=== PATIENT | male | born 1965 | race Caucasian/White ===

== ENCOUNTER 2024-04-05 04:43 | Outpatient (CLI) | payer OTHER, SELFPAY ==
[2024-04-05 09:56] LABS: Abs Immature Grans 0.01 10^3/uL (0.0-0.06); Absolute Basophil Count 0.03 10^3/uL (0.0-0.2); Absolute Eosinophil Count 0.08 10^3/uL (0.0-0.7); Absolute Lymphocyte Count 1.34 10^3/uL (1.2-3.4); Absolute Monocyte Count 0.49 10^3/uL (0.1-0.8); Absolute Neutrophil Count 2.19 10^3/uL (1.2-6.7); Basophils % 0.7 %; Eosinophils % 1.9 %; HCT 40.5 % (40.0-50.0); HGB 13.8 g/dL (13.5-17.5); Immature Grans % 0.2 %; Lymphocytes % 32.4 %; MCH 28.9 pg (27.0-33.0); MCHC 34.1 % (32.0-36.0); MCV 85 fL (80-95); MPV 9.2 fL (8.0-11.0); Monocytes % 11.8 %; Platelet Count 179 10^3/uL (130-400); RBC 4.77 10^6/uL (4.36-5.78); RDW 12.3 % (11.8-14.1); RDW-SD 38.4 fL; WBC 4.14 10^3/uL (4.4-10.8)
[2024-04-05 10:11] LABS: ALT 15 U/L (16-63); AST 21 U/L (15-37); Albumin 3.9 g/dL (3.4-5.0); Alkaline Phosphatase 85 U/L (46-116); Anion Gap 9.9 mmol/L (3-11); BUN 11 mg/dL (7-18); Bilirubin, Total 0.54 mg/dL (0.2-1.0); CO2 25.1 mmol/L (21.0-32.0); CREATININE 1.1 mg/dL (0.70-1.30); Calcium 8.8 mg/dL (8.5-10.1); Chloride 104 mmol/L (98-107); Estimated GFR 77.33 (mL/min/1.73m2); Glucose 147 mg/dL (74-106); Magnesium 1.9 mg/dL (1.8-2.4); Sodium 139 mmol/L (136-145); Total Protein 7.4 g/dL (6.4-8.2)
== END 2024-04-05 04:44 | disposition home or self-care (01) ==
LOC: LBO 04:43
PROVIDERS: Visit Provider Internal Medicine Medical Oncology
DX: C15.5 Malignant neoplasm of lower third of esophagus (principal)
CPT/HCPCS: 36415; 80053; 83735; 85025

== ENCOUNTER 2024-04-12 02:19 | Outpatient (CLI) | payer OTHER, SELFPAY ==
[2024-04-12 07:12] LABS: Abs Immature Grans 0.03 10^3/uL (0.0-0.06); Absolute Basophil Count 0.02 10^3/uL (0.0-0.2); Absolute Eosinophil Count 0.06 10^3/uL (0.0-0.7); Absolute Lymphocyte Count 0.37 10^3/uL (1.2-3.4); Absolute Monocyte Count 0.16 10^3/uL (0.1-0.8); Absolute Neutrophil Count 1.83 10^3/uL (1.2-6.7); Basophils % 0.8 %; Eosinophils % 2.4 %; HCT 42.6 % (40.0-50.0); HGB 14.7 g/dL (13.5-17.5); Immature Grans % 1.2 %; MCH 28.9 pg (27.0-33.0); MCHC 34.5 % (32.0-36.0); MCV 84 fL (80-95); MPV 9.6 fL (8.0-11.0); Monocytes % 6.5 %; Neutrophils % 74.1 %; Platelet Count 146 10^3/uL (130-400); RBC 5.08 10^6/uL (4.36-5.78); RDW-SD 36.4 fL; WBC 2.47 10^3/uL (4.4-10.8)
[2024-04-12 07:27] LABS: ALT 14 U/L (16-63); AST 19 U/L (15-37); Albumin 4.1 g/dL (3.4-5.0); Alkaline Phosphatase 78 U/L (46-116); Anion Gap 8.2 mmol/L (3-11); BUN 14 mg/dL (7-18); Bilirubin, Total 0.76 mg/dL (0.2-1.0); CO2 28.8 mmol/L (21.0-32.0); Calcium 9.5 mg/dL (8.5-10.1); Chloride 98 mmol/L (98-107); Glucose 119 mg/dL (74-106); Potassium 4.6 mmol/L (3.5-5.1); Sodium 135 mmol/L (136-145); Total Protein 7.8 g/dL (6.4-8.2)
[2024-04-12 12:04] LABS: Magnesium 1.9 mg/dL (1.8-2.4)
== END 2024-04-12 02:20 | disposition home or self-care (01) ==
PROVIDERS: Visit Provider Internal Medicine Medical Oncology
DX: C15.5 Malignant neoplasm of lower third of esophagus (principal)
CPT/HCPCS: 36415; 80053; 83735; 85025

== ENCOUNTER 2024-04-19 02:08 | Outpatient (CLI) | payer OTHER, SELFPAY ==
[2024-04-19 10:22] LABS: Abs Immature Grans 0.01 10^3/uL (0.0-0.06); Absolute Basophil Count 0.02 10^3/uL (0.0-0.2); Absolute Eosinophil Count 0.03 10^3/uL (0.0-0.7); Absolute Lymphocyte Count 0.22 10^3/uL (1.2-3.4); Absolute Monocyte Count 0.18 10^3/uL (0.1-0.8); Basophils % 1.1 %; Eosinophils % 1.6 %; HCT 39.8 % (40.0-50.0); HGB 13.4 g/dL (13.5-17.5); Immature Grans % 0.5 %; Lymphocytes % 11.8 %; MCH 28.7 pg (27.0-33.0); MCHC 33.7 % (32.0-36.0); MCV 85 fL (80-95); MPV 9.5 fL (8.0-11.0); Monocytes % 9.7 %; Neutrophils % 75.3 %; RBC 4.67 10^6/uL (4.36-5.78); RDW 12.1 % (11.8-14.1); RDW-SD 37.4 fL
[2024-04-19 10:44] LABS: ALT 9 U/L (16-63); AST 20 U/L (15-37); Albumin 3.9 g/dL (3.4-5.0); Alkaline Phosphatase 66 U/L (46-116); Anion Gap 6.4 mmol/L (3-11); BUN 14 mg/dL (7-18); Bilirubin, Total 0.46 mg/dL (0.2-1.0); CO2 29.6 mmol/L (21.0-32.0); Calcium 9.2 mg/dL (8.5-10.1); Chloride 101 mmol/L (98-107); Glucose 174 mg/dL (74-106); Magnesium 1.9 mg/dL (1.8-2.4); Sodium 137 mmol/L (136-145); Total Protein 7.2 g/dL (6.4-8.2)
[2024-04-19 10:53] LABS: Diff Comment Agrees w/ Instrument; Platelet Count 97 10^3/uL (130-400); WBC 1.86 10^3/uL (4.4-10.8)
[2024-04-19 10:54] LABS: RBC Morphology Normal
== END 2024-04-19 02:09 | disposition home or self-care (01) ==
LOC: LBO 02:09
PROVIDERS: Visit Provider Internal Medicine Medical Oncology
DX: C15.5 Malignant neoplasm of lower third of esophagus (principal)
CPT/HCPCS: 36415; 80053; 83735; 85025

== ENCOUNTER 2024-04-26 02:32 | Outpatient (CLI) | payer OTHER, SELFPAY ==
[2024-04-26 10:45] LABS: Abs Immature Grans 0.01 10^3/uL (0.0-0.06); Absolute Basophil Count 0.03 10^3/uL (0.0-0.2); Absolute Eosinophil Count 0.04 10^3/uL (0.0-0.7); Absolute Lymphocyte Count 0.13 10^3/uL (1.2-3.4); Absolute Monocyte Count 0.23 10^3/uL (0.1-0.8); Absolute Neutrophil Count 1.57 10^3/uL (1.2-6.7); Basophils % 1.5 %; HCT 45.6 % (40.0-50.0); HGB 15.3 g/dL (13.5-17.5); Immature Grans % 0.5 %; Lymphocytes % 6.5 %; MCH 28.7 pg (27.0-33.0); MCHC 33.6 % (32.0-36.0); MCV 86 fL (80-95); Monocytes % 11.4 %; Neutrophils % 78.1 %; Platelet Count 112 10^3/uL (130-400); RBC 5.33 10^6/uL (4.36-5.78); RDW 12.5 % (11.8-14.1); RDW-SD 38.4 fL; WBC 2.01 10^3/uL (4.4-10.8)
[2024-04-26 11:13] LABS: ALT 35 U/L (16-63); AST 48 U/L (15-37); Albumin 4.1 g/dL (3.4-5.0); Alkaline Phosphatase 92 U/L (46-116); Anion Gap 8.4 mmol/L (3-11); BUN 18 mg/dL (7-18); Bilirubin, Total 0.87 mg/dL (0.2-1.0); CO2 28.6 mmol/L (21.0-32.0); Calcium 9.7 mg/dL (8.5-10.1); Chloride 103 mmol/L (98-107); Glucose 135 mg/dL (74-106); Magnesium 1.9 mg/dL (1.8-2.4); Potassium 4.8 mmol/L (3.5-5.1); Sodium 140 mmol/L (136-145); Total Protein 7.8 g/dL (6.4-8.2)
== END 2024-04-26 02:33 | disposition home or self-care (01) ==
PROVIDERS: Visit Provider Internal Medicine Medical Oncology
DX: C15.5 Malignant neoplasm of lower third of esophagus (principal)
CPT/HCPCS: 36415; 80053; 83735; 85025

== ENCOUNTER 2024-05-03 08:33 | Outpatient (CLI) | payer OTHER, SELFPAY ==
[2024-05-03 08:58] LABS: Abs Immature Grans 0.01 10^3/uL (0.0-0.06); HGB 14.1 g/dL (13.5-17.5); MCH 28.9 pg (27.0-33.0); MCHC 33.6 % (32.0-36.0); MCV 86 fL (80-95); MPV 9.3 fL (8.0-11.0); Platelet Count 108 10^3/uL (130-400); RBC 4.88 10^6/uL (4.36-5.78); RDW 13.1 % (11.8-14.1); RDW-SD 40.2 fL; WBC 2.33 10^3/uL (4.4-10.8)
[2024-05-03 09:32] LABS: ALT 19 U/L (16-63); AST 24 U/L (15-37); Albumin 3.8 g/dL (3.4-5.0); Alkaline Phosphatase 91 U/L (46-116); Anion Gap 17.4 mmol/L (3-11); BUN 15 mg/dL (7-18); Bilirubin, Total 0.98 mg/dL (0.2-1.0); CO2 22.6 mmol/L (21.0-32.0); Calcium 9.4 mg/dL (8.5-10.1); Chloride 103 mmol/L (98-107); Glucose 132 mg/dL (74-106); Magnesium 1.5 mg/dL (1.8-2.4); Potassium 3.8 mmol/L (3.5-5.1); Sodium 143 mmol/L (136-145); Total Protein 7.7 g/dL (6.4-8.2)
[2024-05-03 10:01] LABS: Absolute Basophil Count 0.02 10^3/uL (0.0-0.2); Absolute Eosinophil Count 0.07 10^3/uL (0.0-0.7); Absolute Lymphocyte Count 0.21 10^3/uL (1.2-3.4); Absolute Monocyte Count 0.28 10^3/uL (0.1-0.8); Absolute Neutrophil Count 1.75 10^3/uL (1.2-6.7); Atypical Lymphocytes % 0 %; Bands % 2 %; Diff Comment Manual Differential; Metamyelocytes % 0; Myelocytes % 0; Other Cells % 0; Promyelocytes % 0
== END 2024-05-03 08:34 | disposition home or self-care (01) ==
LOC: LBO 08:34
PROVIDERS: Visit Provider Internal Medicine Medical Oncology
DX: C15.5 Malignant neoplasm of lower third of esophagus (principal)
CPT/HCPCS: 36415; 80053; 83735; 85025

== ENCOUNTER 2024-05-18 03:53 | Outpatient (CLI) | payer OTHER, SELFPAY ==
[2024-05-18 08:45] LABS: Abs Immature Grans 0.01 10^3/uL (0.0-0.06); Absolute Basophil Count 0.04 10^3/uL (0.0-0.2); Absolute Eosinophil Count 0.07 10^3/uL (0.0-0.7); Absolute Monocyte Count 0.38 10^3/uL (0.1-0.8); Absolute Neutrophil Count 2.37 10^3/uL (1.2-6.7); Basophils % 1.3 %; Eosinophils % 2.3 %; HCT 42.6 % (40.0-50.0); HGB 14.3 g/dL (13.5-17.5); Immature Grans % 0.3 %; Lymphocytes % 6.5 %; MCH 28.8 pg (27.0-33.0); MCHC 33.6 % (32.0-36.0); MCV 86 fL (80-95); MPV 8.8 fL (8.0-11.0); Monocytes % 12.4 %; Neutrophils % 77.2 %; Platelet Count 115 10^3/uL (130-400); RBC 4.96 10^6/uL (4.36-5.78); RDW 14.7 % (11.8-14.1); RDW-SD 44.5 fL; WBC 3.07 10^3/uL (4.4-10.8)
[2024-05-18 09:09] LABS: ALT 18 U/L (16-63); AST 23 U/L (15-37); Albumin 3.7 g/dL (3.4-5.0); Alkaline Phosphatase 78 U/L (46-116); Anion Gap 10.8 mmol/L (3-11); BUN 15 mg/dL (7-18); Bilirubin, Total 0.68 mg/dL (0.2-1.0); CO2 29.2 mmol/L (21.0-32.0); CREATININE 0.9 mg/dL (0.70-1.30); Calcium 9.6 mg/dL (8.5-10.1); Chloride 102 mmol/L (98-107); Estimated GFR 98.38 (mL/min/1.73m2); Glucose 119 mg/dL (74-106); Magnesium 1.7 mg/dL (1.8-2.4); Sodium 142 mmol/L (136-145); Total Protein 7.2 g/dL (6.4-8.2)
== END 2024-05-18 03:54 | disposition home or self-care (01) ==
LOC: LBO 03:54
PROVIDERS: PCP Internal Medicine Medical Oncology; Visit Provider Internal Medicine Medical Oncology
DX: C15.5 Malignant neoplasm of lower third of esophagus (principal)
CPT/HCPCS: 36415; 80053; 83735; 85025

== ENCOUNTER 2024-06-01 09:15 | Outpatient (RCR) | payer OTHER, SELFPAY ==
[2024-05-18] MEDS: Normal Saline Flush 10 ML SYR IVP (12:08)
[2024-05-31 09:52] LABS: DPYD Activity Score 1.5
[2024-05-31 09:56] LABS: Method See Comments
[2024-05-31 09:58] LABS: Additional Information See Comments
[2024-05-31 10:02] LABS: Disclaimer See Comments
[2024-05-31 10:05] LABS: DPYD Phenotype See Comments; Interpretation See Comments
[2024-06-01] MEDS: Normal Saline Flush 10 ML SYR IVP (09:20)
[2024-06-01 09:33] LABS: Abs Immature Grans 0.02 10^3/uL (0.0-0.06); Absolute Basophil Count 0.03 10^3/uL (0.0-0.2); Absolute Lymphocyte Count 0.39 10^3/uL (1.2-3.4); Absolute Monocyte Count 0.62 10^3/uL (0.1-0.8); Absolute Neutrophil Count 2.12 10^3/uL (1.2-6.7); Basophils % 0.9 %; HCT 34.5 % (40.0-50.0); HGB 11.9 g/dL (13.5-17.5); Immature Grans % 0.6 %; Lymphocytes % 11.9 %; MCHC 34.5 % (32.0-36.0); MCV 84 fL (80-95); MPV 8.7 fL (8.0-11.0); Monocytes % 18.9 %; Neutrophils % 64.7 %; Platelet Count 204 10^3/uL (130-400); RBC 4.11 10^6/uL (4.36-5.78); RDW 15.6 % (11.8-14.1); RDW-SD 47.6 fL; WBC 3.28 10^3/uL (4.4-10.8)
[2024-06-01 09:47] LABS: ALT 15 U/L (16-63); AST 23 U/L (15-37); Albumin 3.3 g/dL (3.4-5.0); Alkaline Phosphatase 93 U/L (46-116); Anion Gap 6.7 mmol/L (3-11); BUN 9 mg/dL (7-18); Bilirubin, Total 0.52 mg/dL (0.2-1.0); CO2 29.3 mmol/L (21.0-32.0); CREATININE 0.8 mg/dL (0.70-1.30); Calcium 9.5 mg/dL (8.5-10.1); Chloride 100 mmol/L (98-107); Estimated GFR 101.95 (mL/min/1.73m2); Glucose 139 mg/dL (74-106); Magnesium 1.9 mg/dL (1.8-2.4); Potassium 4.2 mmol/L (3.5-5.1); Sodium 136 mmol/L (136-145); Total Protein 7.6 g/dL (6.4-8.2)
== END 2024-06-04 23:59 | disposition home or self-care (01) ==
LOC: INF 09:15
PROVIDERS: PCP Internal Medicine Medical Oncology; Visit Provider Nurse Practitioner Family
DX: C15.5 Malignant neoplasm of lower third of esophagus (principal); C79.51 Secondary malignant neoplasm of bone
CPT/HCPCS: 36591; 80053; 81232; 83735; 85025

== ENCOUNTER 2024-06-21 01:46 | Outpatient (RCR) | payer OTHER, SELFPAY ==
[2024-06-08] MEDS: Normal Saline Flush 10 ML SYR IVP (07:20)
[2024-06-08 07:41] LABS: Abs Immature Grans 0.02 10^3/uL (0.0-0.06); Absolute Basophil Count 0.02 10^3/uL (0.0-0.2); Absolute Lymphocyte Count 0.43 10^3/uL (1.2-3.4); Absolute Monocyte Count 0.41 10^3/uL (0.1-0.8); Absolute Neutrophil Count 1.86 10^3/uL (1.2-6.7); Basophils % 0.7 %; Eosinophils % 3.5 %; HCT 31.4 % (40.0-50.0); HGB 10.8 g/dL (13.5-17.5); Immature Grans % 0.7 %; Lymphocytes % 15.1 %; MCH 29.1 pg (27.0-33.0); MCHC 34.4 % (32.0-36.0); MCV 85 fL (80-95); MPV 8.7 fL (8.0-11.0); Monocytes % 14.4 %; Neutrophils % 65.6 %; Platelet Count 221 10^3/uL (130-400); RBC 3.71 10^6/uL (4.36-5.78); RDW 16.1 % (11.8-14.1); RDW-SD 50.4 fL; WBC 2.84 10^3/uL (4.4-10.8)
[2024-06-08 08:17] LABS: ALT 18 U/L (16-63); AST 19 U/L (15-37); Albumin 3.1 g/dL (3.4-5.0); Alkaline Phosphatase 87 U/L (46-116); Anion Gap 7.2 mmol/L (3-11); BUN 4 mg/dL (7-18); Bilirubin, Total 0.35 mg/dL (0.2-1.0); CO2 28.8 mmol/L (21.0-32.0); CREATININE 0.8 mg/dL (0.70-1.30); Calcium 8.9 mg/dL (8.5-10.1); Chloride 103 mmol/L (98-107); Estimated GFR 101.95 (mL/min/1.73m2); Glucose 150 mg/dL (74-106); Magnesium 1.7 mg/dL (1.8-2.4); Sodium 139 mmol/L (136-145); Total Protein 6.7 g/dL (6.4-8.2)
[2024-06-08 10:14] LABS: FREE T4 0.74 ng/dL (0.76-1.46); TSH 1.83 uIU/mL (0.36-3.74)
[2024-06-21] MEDS: Normal Saline Flush 10 ML SYR IVP (08:42)
[2024-06-21 08:54] LABS: Abs Immature Grans 0.01 10^3/uL (0.0-0.06); Absolute Basophil Count 0.03 10^3/uL (0.0-0.2); Absolute Eosinophil Count 0.06 10^3/uL (0.0-0.7); Absolute Lymphocyte Count 0.35 10^3/uL (1.2-3.4); Absolute Monocyte Count 0.34 10^3/uL (0.1-0.8); Absolute Neutrophil Count 1.13 10^3/uL (1.2-6.7); Basophils % 1.6 %; Eosinophils % 3.1 %; HCT 30.7 % (40.0-50.0); HGB 10.3 g/dL (13.5-17.5); Immature Grans % 0.5 %; Lymphocytes % 18.2 %; MCHC 33.6 % (32.0-36.0); MCV 87 fL (80-95); MPV 9.4 fL (8.0-11.0); Monocytes % 17.7 %; Neutrophils % 58.9 %; RBC 3.55 10^6/uL (4.36-5.78); RDW 16.6 % (11.8-14.1); RDW-SD 50.8 fL
[2024-06-21 09:18] LABS: ALT 31 U/L (16-63); AST 44 U/L (15-37); Albumin 3.2 g/dL (3.4-5.0); Alkaline Phosphatase 104 U/L (46-116); Anion Gap 6.6 mmol/L (3-11); BUN 5 mg/dL (7-18); Bilirubin, Total 0.35 mg/dL (0.2-1.0); CO2 28.4 mmol/L (21.0-32.0); CREATININE 0.8 mg/dL (0.70-1.30); Calcium 9.3 mg/dL (8.5-10.1); Chloride 104 mmol/L (98-107); Estimated GFR 101.95 (mL/min/1.73m2); FREE T4 0.93 ng/dL (0.76-1.46); Glucose 162 mg/dL (74-106); Magnesium 1.7 mg/dL (1.8-2.4); Potassium 3.6 mmol/L (3.5-5.1); Sodium 139 mmol/L (136-145); TSH 1.02 uIU/mL (0.36-3.74); Total Protein 6.8 g/dL (6.4-8.2)
[2024-06-21 09:38] LABS: WBC 1.92 10^3/uL (4.4-10.8)
[2024-06-21 09:39] LABS: Diff Comment Diff Reviewed; Platelet Count 82 10^3/uL (130-400)
== END 2024-07-02 23:59 | disposition home or self-care (01) ==
LOC: INF 01:46
PROVIDERS: PCP Internal Medicine Medical Oncology; Visit Provider Nurse Practitioner Family
DX: C15.5 Malignant neoplasm of lower third of esophagus (principal); Z79.899 Other long term (current) drug therapy
CPT/HCPCS: 36591; 80053; 83735; 84439; 84443; 85025

== ENCOUNTER 2024-07-27 01:45 | Outpatient (RCR) | payer OTHER, SELFPAY ==
[2024-07-06] MEDS: Normal Saline Flush 10 ML SYR IVP (08:47)
[2024-07-06 09:01] LABS: Abs Immature Grans 0.02 10^3/uL (0.0-0.06); Absolute Basophil Count 0.04 10^3/uL (0.0-0.2); Absolute Eosinophil Count 0.03 10^3/uL (0.0-0.7); Absolute Lymphocyte Count 0.27 10^3/uL (1.2-3.4); Absolute Monocyte Count 0.59 10^3/uL (0.1-0.8); Basophils % 1.2 %; Eosinophils % 0.9 %; HCT 27.6 % (40.0-50.0); HGB 9.1 g/dL (13.5-17.5); Immature Grans % 0.6 %; Lymphocytes % 8.1 %; MCH 29.9 pg (27.0-33.0); MCV 91 fL (80-95); MPV 9.1 fL (8.0-11.0); Monocytes % 17.6 %; Neutrophils % 71.6 %; Platelet Count 106 10^3/uL (130-400); RBC 3.04 10^6/uL (4.36-5.78); RDW 19.2 % (11.8-14.1); RDW-SD 62.5 fL; WBC 3.35 10^3/uL (4.4-10.8)
[2024-07-06 09:23] LABS: ALT 14 U/L (16-63); AST 22 U/L (15-37); Albumin 2.9 g/dL (3.4-5.0); Alkaline Phosphatase 112 U/L (46-116); Anion Gap 7.3 mmol/L (3-11); BUN 6 mg/dL (7-18); Bilirubin, Total 0.23 mg/dL (0.2-1.0); CO2 28.7 mmol/L (21.0-32.0); CREATININE 0.7 mg/dL (0.70-1.30); Calcium 8.8 mg/dL (8.5-10.1); Chloride 104 mmol/L (98-107); Estimated GFR 106.14 (mL/min/1.73m2); Glucose 136 mg/dL (74-106); Potassium 3.9 mmol/L (3.5-5.1); Sodium 140 mmol/L (136-145); Total Protein 6.5 g/dL (6.4-8.2)
[2024-07-19 08:52] LABS: Abs Immature Grans 0.03 10^3/uL (0.0-0.06); Absolute Basophil Count 0.03 10^3/uL (0.0-0.2); Absolute Eosinophil Count 0.05 10^3/uL (0.0-0.7); Absolute Lymphocyte Count 0.34 10^3/uL (1.2-3.4); Absolute Monocyte Count 0.55 10^3/uL (0.1-0.8); Absolute Neutrophil Count 2.64 10^3/uL (1.2-6.7); Basophils % 0.8 %; Eosinophils % 1.4 %; HCT 27.6 % (40.0-50.0); HGB 9.3 g/dL (13.5-17.5); Immature Grans % 0.8 %; Lymphocytes % 9.3 %; MCH 30.9 pg (27.0-33.0); MCHC 33.7 % (32.0-36.0); MCV 92 fL (80-95); MPV 10.6 fL (8.0-11.0); Monocytes % 15.1 %; Neutrophils % 72.6 %; RBC 3.01 10^6/uL (4.36-5.78); RDW 20.4 % (11.8-14.1); RDW-SD 67.9 fL; WBC 3.64 10^3/uL (4.4-10.8)
[2024-07-19 09:10] LABS: Uric Acid 5.1 mg/dL (3.5-7.2)
[2024-07-19 09:11] LABS: ALT 19 U/L (16-63); AST 26 U/L (15-37); Albumin 3.3 g/dL (3.4-5.0); Alkaline Phosphatase 115 U/L (46-116); Anion Gap 8.1 mmol/L (3-11); BUN 5 mg/dL (7-18); Bilirubin, Total 0.4 mg/dL (0.2-1.0); CO2 27.9 mmol/L (21.0-32.0); Calcium 9.4 mg/dL (8.5-10.1); Chloride 103 mmol/L (98-107); Glucose 168 mg/dL (74-106); Magnesium 1.9 mg/dL; Potassium 3.2 mmol/L (3.5-5.1); Sodium 139 mmol/L (136-145)
[2024-07-19 09:19] LABS: TSH 1.17 uIU/mL (0.36-3.74)
[2024-07-19 09:20] LABS: Anisocytosis 1+; Platelet Count 65 10^3/uL (130-400)
[2024-07-19] MEDS: Normal Saline Flush 10 ML SYR IVP (09:36)
[2024-07-19 17:15] LABS: T4, Free 1.2 ng/dL (0.8-2.2)
[2024-07-27 10:12] LABS: Abs Immature Grans 0.03 10^3/uL (0.0-0.06); Absolute Basophil Count 0.02 10^3/uL (0.0-0.2); Absolute Eosinophil Count 0.04 10^3/uL (0.0-0.7); Absolute Lymphocyte Count 0.34 10^3/uL (1.2-3.4); Absolute Monocyte Count 0.54 10^3/uL (0.1-0.8); Absolute Neutrophil Count 1.37 10^3/uL (1.2-6.7); Basophils % 0.9 %; Eosinophils % 1.7 %; HCT 27.6 % (40.0-50.0); HGB 9.3 g/dL (13.5-17.5); Immature Grans % 1.3 %; Lymphocytes % 14.5 %; MCHC 33.7 % (32.0-36.0); MCV 95 fL (80-95); MPV 9.2 fL (8.0-11.0); Monocytes % 23.1 %; Neutrophils % 58.5 %; Platelet Count 106 10^3/uL (130-400); RBC 2.91 10^6/uL (4.36-5.78); RDW 21.4 % (11.8-14.1); RDW-SD 73.1 fL; WBC 2.34 10^3/uL (4.4-10.8)
[2024-07-27] MEDS: Normal Saline Flush 10 ML SYR IVP (10:15)
[2024-07-27 10:21] LABS: Anisocytosis 2+; Diff Comment RBC Morph Reviewed; Poikilocytes 1+
[2024-07-27 10:29] LABS: ALT 17 U/L (16-63); AST 22 U/L (15-37); Albumin 3.1 g/dL (3.4-5.0); Alkaline Phosphatase 103 U/L (46-116); Anion Gap 6.4 mmol/L (3-11); BUN 6 mg/dL (7-18); Bilirubin, Total 0.3 mg/dL (0.2-1.0); CO2 29.6 mmol/L (21.0-32.0); CREATININE 0.8 mg/dL (0.70-1.30); Calcium 8.6 mg/dL (8.5-10.1); Chloride 105 mmol/L (98-107); Estimated GFR 101.95 (mL/min/1.73m2); Glucose 152 mg/dL (74-106); Potassium 3.9 mmol/L (3.5-5.1); Sodium 141 mmol/L (136-145); Total Protein 6.3 g/dL (6.4-8.2)
[2024-07-27 10:39] LABS: TSH 1.06 uIU/mL (0.36-3.74)
[2024-07-27 17:46] LABS: T4, Free 1.2 ng/dL (0.8-2.2)
[2024-07-27 18:22] LABS: CEA <0.5 ng/mL (See Note)
== END 2024-08-02 23:59 | disposition home or self-care (01) ==
LOC: INF 01:45
PROVIDERS: Physician Assistant; PCP Internal Medicine Medical Oncology; Visit Provider Nurse Practitioner Family
DX: C15.5 Malignant neoplasm of lower third of esophagus (principal); C79.51 Secondary malignant neoplasm of bone; Z79.899 Other long term (current) drug therapy; M10.9 Gout, unspecified
CPT/HCPCS: 36591; 80053; 82378; 83735; 84439; 84443; 84550; 85025

== ENCOUNTER 2024-08-30 00:23 | Outpatient (RCR) | payer OTHER, SELFPAY ==
[2024-08-09] MEDS: Normal Saline Flush 10 ML SYR IVP (08:09)
[2024-08-09 08:26] LABS: Abs Immature Grans 0.02 10^3/uL (0.0-0.06); Absolute Basophil Count 0.02 10^3/uL (0.0-0.2); Absolute Eosinophil Count 0.06 10^3/uL (0.0-0.7); Absolute Lymphocyte Count 0.29 10^3/uL (1.2-3.4); Absolute Monocyte Count 0.43 10^3/uL (0.1-0.8); Absolute Neutrophil Count 1.63 10^3/uL (1.2-6.7); Basophils % 0.8 %; Eosinophils % 2.4 %; HCT 27.9 % (40.0-50.0); Immature Grans % 0.8 %; Lymphocytes % 11.8 %; MCH 32.3 pg (27.0-33.0); MCHC 32.3 % (32.0-36.0); MCV 100 fL (80-95); MPV 10.4 fL (8.0-11.0); Monocytes % 17.6 %; Neutrophils % 66.6 %; RBC 2.79 10^6/uL (4.36-5.78); RDW-SD 70.7 fL; WBC 2.45 10^3/uL (4.4-10.8)
[2024-08-09 08:37] LABS: Diff Comment PLT Morph Reviewed; Platelet Count 65 10^3/uL (130-400); RBC Morphology Normal
[2024-08-09 08:46] LABS: ALT 15 U/L (16-63); AST 25 U/L (15-37); Albumin 3.2 g/dL (3.4-5.0); Alkaline Phosphatase 115 U/L (46-116); Anion Gap 8.2 mmol/L (3-11); BUN 7 mg/dL (7-18); Bilirubin, Total 0.3 mg/dL (0.2-1.0); CO2 26.8 mmol/L (21.0-32.0); CREATININE 0.9 mg/dL (0.70-1.30); Calcium 8.9 mg/dL (8.5-10.1); Chloride 108 mmol/L (98-107); Estimated GFR 97.78 (mL/min/1.73m2); Glucose 140 mg/dL (74-106); Magnesium 1.9 mg/dL; Potassium 3.8 mmol/L (3.5-5.1); Sodium 143 mmol/L (136-145); Total Protein 6.6 g/dL (6.4-8.2)
[2024-08-09 08:54] LABS: FREE T4 0.91 ng/dL (0.76-1.46); TSH 1.29 uIU/mL (0.36-3.74)
[2024-08-16] MEDS: Normal Saline Flush 10 ML SYR IVP (07:42)
[2024-08-16 08:16] LABS: Abs Immature Grans 0.02 10^3/uL (0.0-0.06); Absolute Basophil Count 0.03 10^3/uL (0.0-0.2); Absolute Eosinophil Count 0.07 10^3/uL (0.0-0.7); Absolute Lymphocyte Count 0.36 10^3/uL (1.2-3.4); Absolute Neutrophil Count 1.38 10^3/uL (1.2-6.7); Basophils % 1.1 %; Eosinophils % 2.6 %; HCT 30.4 % (40.0-50.0); HGB 9.8 g/dL (13.5-17.5); Immature Grans % 0.8 %; Lymphocytes % 13.5 %; MCH 32.7 pg (27.0-33.0); MCHC 32.2 % (32.0-36.0); MCV 101 fL (80-95); MPV 9.6 fL (8.0-11.0); Monocytes % 30.1 %; Neutrophils % 51.9 %; Platelet Count 134 10^3/uL (130-400); RDW 17.2 % (11.8-14.1); RDW-SD 65.1 fL; WBC 2.66 10^3/uL (4.4-10.8)
[2024-08-16 08:43] LABS: ALT 16 U/L (16-63); AST 26 U/L (15-37); Albumin 3.3 g/dL (3.4-5.0); Alkaline Phosphatase 142 U/L (46-116); Anion Gap 11.3 mmol/L (3-11); BUN 7 mg/dL (7-18); Bilirubin, Total 0.4 mg/dL (0.2-1.0); CO2 26.7 mmol/L (21.0-32.0); CREATININE 0.9 mg/dL (0.70-1.30); Chloride 102 mmol/L (98-107); Estimated GFR 97.78 (mL/min/1.73m2); Glucose 152 mg/dL (74-106); Magnesium 1.9 mg/dL (1.8-2.4); Potassium 4.1 mmol/L (3.5-5.1); Sodium 140 mmol/L (136-145); TSH 1.72 uIU/mL (0.36-3.74); Total Protein 7.1 g/dL (6.4-8.2)
[2024-08-30] MEDS: Normal Saline Flush 10 ML SYR IVP (08:46)
[2024-08-30 08:58] LABS: Abs Immature Grans 0.01 10^3/uL (0.0-0.06); Absolute Basophil Count 0.01 10^3/uL (0.0-0.2); Absolute Eosinophil Count 0.04 10^3/uL (0.0-0.7); Absolute Monocyte Count 0.38 10^3/uL (0.1-0.8); Absolute Neutrophil Count 1.48 10^3/uL (1.2-6.7); Basophils % 0.5 %; Eosinophils % 1.8 %; HCT 31.2 % (40.0-50.0); HGB 10.2 g/dL (13.5-17.5); Immature Grans % 0.5 %; Lymphocytes % 13.5 %; MCH 32.9 pg (27.0-33.0); MCHC 32.7 % (32.0-36.0); MCV 101 fL (80-95); MPV 9.9 fL (8.0-11.0); Monocytes % 17.1 %; Neutrophils % 66.6 %; RDW 16.7 % (11.8-14.1); WBC 2.22 10^3/uL (4.4-10.8)
[2024-08-30 09:14] LABS: Diff Comment Manual Differential
[2024-08-30 09:15] LABS: Platelet Count 96 10^3/uL (130-400); RBC Morphology Normal
[2024-08-30 09:22] LABS: FREE T4 0.87 ng/dL (0.76-1.46); TSH 1.07 uIU/mL (0.36-3.74)
[2024-08-30 09:33] LABS: ALT 13 U/L (16-63); AST 30 U/L (15-37); Albumin 3.2 g/dL (3.4-5.0); Alkaline Phosphatase 125 U/L (46-116); Anion Gap 10.7 mmol/L (3-11); BUN 9 mg/dL (7-18); Bilirubin, Total 0.3 mg/dL (0.2-1.0); CO2 26.3 mmol/L (21.0-32.0); CREATININE 0.8 mg/dL (0.70-1.30); Calcium 8.9 mg/dL (8.5-10.1); Chloride 106 mmol/L (98-107); Estimated GFR 101.32 (mL/min/1.73m2); Glucose 132 mg/dL (74-106); Magnesium 1.9 mg/dL (1.8-2.4); Potassium 4.1 mmol/L (3.5-5.1); Sodium 143 mmol/L (136-145); Total Protein 6.9 g/dL (6.4-8.2)
== END 2024-09-01 23:59 | disposition home or self-care (01) ==
LOC: INF 00:23
PROVIDERS: PCP Internal Medicine Medical Oncology; Visit Provider Nurse Practitioner Family
DX: C15.5 Malignant neoplasm of lower third of esophagus (principal); Z79.899 Other long term (current) drug therapy; Z45.2 Encounter for adjustment and management of vascular access device
CPT/HCPCS: 36591; 80053; 83735; 84439; 84443; 85025

== ENCOUNTER 2024-09-28 01:57 | Outpatient (RCR) | payer OTHER, SELFPAY ==
[2024-09-13] MEDS: Normal Saline Flush 10 ML SYR IVP (08:18)
[2024-09-13 08:51] LABS: Abs Immature Grans 0.01 10^3/uL (0.0-0.06); Absolute Basophil Count 0.02 10^3/uL (0.0-0.2); Absolute Eosinophil Count 0.05 10^3/uL (0.0-0.7); Absolute Lymphocyte Count 0.35 10^3/uL (1.2-3.4); Absolute Monocyte Count 0.54 10^3/uL (0.1-0.8); Absolute Neutrophil Count 2.03 10^3/uL (1.2-6.7); Basophils % 0.7 %; Eosinophils % 1.7 %; HCT 30.9 % (40.0-50.0); HGB 10.5 g/dL (13.5-17.5); Immature Grans % 0.3 %; Lymphocytes % 11.7 %; MCH 32.9 pg (27.0-33.0); MCV 97 fL (80-95); MPV 10.5 fL (8.0-11.0); Neutrophils % 67.6 %; RBC 3.19 10^6/uL (4.36-5.78); RDW 16.5 % (11.8-14.1); RDW-SD 58.5 fL
[2024-09-13 09:03] LABS: Diff Comment PLT Morph Reviewed; Platelet Count 78 10^3/uL (130-400); RBC Morphology Normal
[2024-09-13 09:15] LABS: ALT 12 U/L (16-63); AST 28 U/L (15-37); Albumin 3.3 g/dL (3.4-5.0); Alkaline Phosphatase 137 U/L (46-116); Anion Gap 6.1 mmol/L (3-11); BUN 7 mg/dL (7-18); Bilirubin, Total 0.4 mg/dL (0.2-1.0); CO2 26.9 mmol/L (21.0-32.0); CREATININE 0.9 mg/dL (0.70-1.30); Calcium 9.2 mg/dL (8.5-10.1); Chloride 105 mmol/L (98-107); Estimated GFR 97.78 (mL/min/1.73m2); Glucose 120 mg/dL (74-106); Sodium 138 mmol/L (136-145); Total Protein 7.1 g/dL (6.4-8.2)
[2024-09-13 09:29] LABS: FREE T4 0.91 ng/dL (0.76-1.46)
[2024-09-28] MEDS: Normal Saline Flush 10 ML SYR IVP (08:34)
[2024-09-28 08:51] LABS: Abs Immature Grans 0.01 10^3/uL (0.0-0.06); Absolute Basophil Count 0.03 10^3/uL (0.0-0.2); Absolute Eosinophil Count 0.05 10^3/uL (0.0-0.7); Absolute Lymphocyte Count 0.31 10^3/uL (1.2-3.4); Absolute Monocyte Count 0.61 10^3/uL (0.1-0.8); Absolute Neutrophil Count 2.25 10^3/uL (1.2-6.7); Basophils % 0.9 %; Eosinophils % 1.5 %; HGB 10.5 g/dL (13.5-17.5); Immature Grans % 0.3 %; Lymphocytes % 9.5 %; MCHC 33.9 % (32.0-36.0); MCV 98 fL (80-95); MPV 10.6 fL (8.0-11.0); Monocytes % 18.7 %; Neutrophils % 69.1 %; RBC 3.18 10^6/uL (4.36-5.78); RDW 16.3 % (11.8-14.1); RDW-SD 58.9 fL; WBC 3.26 10^3/uL (4.4-10.8)
[2024-09-28 09:28] LABS: ALT 13 U/L (16-63); AST 29 U/L (15-37); Albumin 3.2 g/dL (3.4-5.0); Alkaline Phosphatase 139 U/L (46-116); BUN 9 mg/dL (7-18); Bilirubin, Total 0.4 mg/dL (0.2-1.0); CREATININE 0.9 mg/dL (0.70-1.30); Chloride 103 mmol/L (98-107); Estimated GFR 97.78 (mL/min/1.73m2); FREE T4 0.83 ng/dL (0.76-1.46); Glucose 168 mg/dL (74-106); Magnesium 1.9 mg/dL (1.8-2.4); Potassium 3.9 mmol/L (3.5-5.1); Sodium 138 mmol/L (136-145); TSH 1.32 uIU/mL (0.36-3.74)
[2024-09-28 09:34] LABS: Diff Comment Diff Reviewed; Platelet Count 89 10^3/uL (130-400); RBC Morphology Normal
== END 2024-10-02 23:59 | disposition home or self-care (01) ==
LOC: INF 01:57
PROVIDERS: PCP Internal Medicine Medical Oncology; Visit Provider Nurse Practitioner Family
DX: C15.5 Malignant neoplasm of lower third of esophagus (principal); Z79.899 Other long term (current) drug therapy; Z45.2 Encounter for adjustment and management of vascular access device
CPT/HCPCS: 36591; 80053; 83735; 84439; 84443; 85025

== ENCOUNTER 2024-10-18 00:35 | Outpatient (RCR) | payer OTHER, SELFPAY ==
[2024-10-18] MEDS: Normal Saline Flush 10 ML SYR IVP (08:42)
[2024-10-18 09:17] LABS: Abs Immature Grans 0.01 10^3/uL (0.0-0.06); Absolute Basophil Count 0.03 10^3/uL (0.0-0.2); Absolute Eosinophil Count 0.05 10^3/uL (0.0-0.7); Absolute Lymphocyte Count 0.35 10^3/uL (1.2-3.4); Absolute Monocyte Count 0.52 10^3/uL (0.1-0.8); Absolute Neutrophil Count 1.43 10^3/uL (1.2-6.7); Basophils % 1.3 %; Eosinophils % 2.1 %; HCT 33.1 % (40.0-50.0); HGB 10.9 g/dL (13.5-17.5); Immature Grans % 0.4 %; Lymphocytes % 14.6 %; MCH 32.5 pg (27.0-33.0); MCHC 32.9 % (32.0-36.0); MCV 99 fL (80-95); MPV 8.9 fL (8.0-11.0); Monocytes % 21.8 %; Neutrophils % 59.8 %; Platelet Count 136 10^3/uL (130-400); RBC 3.35 10^6/uL (4.36-5.78); RDW 15.5 % (11.8-14.1); RDW-SD 56.3 fL; WBC 2.39 10^3/uL (4.4-10.8)
[2024-10-18 09:37] LABS: ALT 15 U/L (16-63); AST 28 U/L (15-37); Albumin 3.2 g/dL (3.4-5.0); Alkaline Phosphatase 157 U/L (46-116); BUN 8 mg/dL (7-18); Bilirubin, Total 0.4 mg/dL (0.2-1.0); CREATININE 0.8 mg/dL (0.70-1.30); Calcium 8.9 mg/dL (8.5-10.1); Chloride 103 mmol/L (98-107); Estimated GFR 101.32 (mL/min/1.73m2); Glucose 166 mg/dL (74-106); Potassium 3.8 mmol/L (3.5-5.1); Sodium 139 mmol/L (136-145); Total Protein 7.2 g/dL (6.4-8.2)
[2024-10-18 09:58] LABS: FREE T4 0.84 ng/dL (0.76-1.46)
== END 2024-11-01 23:59 | disposition home or self-care (01) ==
LOC: INF 00:35
PROVIDERS: PCP Internal Medicine Medical Oncology; Visit Provider Nurse Practitioner Family
DX: C15.5 Malignant neoplasm of lower third of esophagus (principal); Z79.899 Other long term (current) drug therapy
CPT/HCPCS: 36591; 80053; 83735; 84439; 84443; 85025

== ENCOUNTER 2024-11-15 02:29 | Outpatient (CLI) | payer OTHER, SELFPAY ==
--- NOTE | 2024-11-15 08:26 | DI.RAD_ITS ---
Exam(s) XR CHEST 2V PA LATERAL EXAM: XR CHEST 2V PA LATERAL CLINICAL HISTORY: ? PNEUMONIA ON PET SCAN,S/P ANTBX,RECURRENT COUGH,J18.9,NEOPLASM OF TECHNIQUE: 2D digital imaging was performed of the chest. Two images were obtained. PA and lateral views were obtained. COMPARISON: CR CHEST 2 VIEWS PA,LAT from 03/06/2015 CT,PT NM PET CT STANDARD SKULL BASE TO MID-THIGH from 10/12/2024 FINDINGS: MEDIASTINUM: Normal. HEART: Normal. PULMONARY VASCULATURE: Normal. LUNGS: Infiltrate in the right lower lobe has significantly improved and is near completely resolved. There is a persistent infiltrate in the left lower lobe. PLEURAL SPACE: No pleural effusion or pneumothorax. BONE:Within normal limits for the patient's age. OTHER FINDINGS:The tip of the right central venous catheter is in good position. IMPRESSION: Persistent left lower lobe pneumonia. Near complete resolution of the infiltrate in the right lower lobe. DATA REPOSITORY: RADIATION DOSE DELIVERED:
== END 2024-11-15 02:49 ==
PROVIDERS: PCP Internal Medicine Medical Oncology; Visit Provider Nurse Practitioner Family
DX: J18.1 Lobar pneumonia, unspecified organism (principal)
CPT/HCPCS: 71046

== ENCOUNTER 2024-11-30 04:17 | Outpatient (RCR) | payer OTHER, SELFPAY ==
[2024-11-16] MEDS: Normal Saline Flush 10 ML SYR IVP (08:38)
[2024-11-16 08:50] LABS: Abs Immature Grans 0.04 10^3/uL (0.0-0.06); HCT 32.6 % (40.0-50.0); HGB 10.7 g/dL (13.5-17.5); Immature Grans % 0.9 %; MCH 32.0 pg (27.0-33.0); MCHC 32.8 % (32.0-36.0); MCV 98 fL (80-95); MPV 9.1 fL (8.0-11.0); Platelet Count 186 10^3/uL (130-400); RBC 3.34 10^6/uL (4.36-5.78); RDW 14.9 % (11.8-14.1); RDW-SD 53.1 fL; WBC 4.28 10^3/uL (4.4-10.8)
[2024-11-16 09:08] LABS: ALT 16 U/L (16-63); AST 34 U/L (15-37); Albumin 3.2 g/dL (3.4-5.0); Alkaline Phosphatase 174 U/L (46-116); Anion Gap 9.7 mmol/L (3-11); BUN 8 mg/dL (7-18); Bilirubin, Total 0.4 mg/dL (0.2-1.0); CO2 25.3 mmol/L (21.0-32.0); Calcium 8.9 mg/dL (8.5-10.1); Chloride 102 mmol/L (98-107); Estimated GFR 101.32 (mL/min/1.73m2); Glucose 133 mg/dL (74-106); Magnesium 2.0 mg/dL (1.8-2.4); Potassium 4.0 mmol/L (3.5-5.1); Sodium 137 mmol/L (136-145); Total Protein 7.2 g/dL (6.4-8.2)
[2024-11-16 09:13] LABS: TSH 1.60 uIU/mL (0.36-3.74)
[2024-11-30 09:10] LABS: Abs Immature Grans 0.01 10^3/uL (0.0-0.06); HCT 32.0 % (40.0-50.0); HGB 10.6 g/dL (13.5-17.5); Immature Grans % 0.3 %; MCH 31.4 pg (27.0-33.0); MCHC 33.1 % (32.0-36.0); MCV 95 fL (80-95); MPV 9.7 fL (8.0-11.0); Platelet Count 119 10^3/uL (130-400); RBC 3.38 10^6/uL (4.36-5.78); RDW 14.5 % (11.8-14.1); RDW-SD 49.9 fL; WBC 2.95 10^3/uL (4.4-10.8)
[2024-11-30 09:25] LABS: ALT 14 U/L (16-63); AST 29 U/L (15-37); Albumin 3.2 g/dL (3.4-5.0); Alkaline Phosphatase 161 U/L (46-116); Anion Gap 9.4 mmol/L (3-11); BUN 7 mg/dL (7-18); Bilirubin, Total 0.3 mg/dL (0.2-1.0); CO2 26.6 mmol/L (21.0-32.0); Calcium 8.9 mg/dL (8.5-10.1); Chloride 100 mmol/L (98-107); Estimated GFR 101.32 (mL/min/1.73m2); Glucose 173 mg/dL (74-106); Magnesium 2.0 mg/dL (1.8-2.4); Potassium 4.3 mmol/L (3.5-5.1); Sodium 136 mmol/L (136-145); Total Protein 7.1 g/dL (6.4-8.2)
[2024-11-30] MEDS: Normal Saline Flush 10 ML SYR IVP (09:25)
[2024-11-30 09:33] LABS: TSH 1.10 uIU/mL (0.36-3.74)
== END 2024-12-02 23:59 | disposition home or self-care (01) ==
LOC: INF 04:17
PROVIDERS: PCP Internal Medicine Medical Oncology; Visit Provider Nurse Practitioner Family
DX: Z45.2 Encounter for adjustment and management of vascular access device (principal); C15.5 Malignant neoplasm of lower third of esophagus; Z79.899 Other long term (current) drug therapy
CPT/HCPCS: 36591; 80053; 83735; 84439; 84443; 85025

== ENCOUNTER 2024-12-27 03:33 | Outpatient (RCR) | payer OTHER, SELFPAY ==
[2024-12-14 09:06] LABS: Abs Immature Grans 0.03 10^3/uL (0.0-0.06); HCT 33.1 % (40.0-50.0); HGB 11.1 g/dL (13.5-17.5); Immature Grans % 0.9 %; MCH 32.0 pg (27.0-33.0); MCHC 33.5 % (32.0-36.0); MCV 95 fL (80-95); MPV 9.3 fL (8.0-11.0); Platelet Count 139 10^3/uL (130-400); RBC 3.47 10^6/uL (4.36-5.78); RDW 15.9 % (11.8-14.1); RDW-SD 55.5 fL; WBC 3.40 10^3/uL (4.4-10.8)
[2024-12-14] MEDS: Normal Saline Flush 10 ML SYR IVP (09:14)
[2024-12-14 09:36] LABS: C-Reactive Protein 0.52 mg/dL (<or=0.5)
[2024-12-14 09:40] LABS: ESR 27 mm/hr (0-20)
[2024-12-14 09:46] LABS: ALT 17 U/L (16-63); AST 30 U/L (15-37); Albumin 3.4 g/dL (3.4-5.0); Alkaline Phosphatase 135 U/L (46-116); Anion Gap 6.5 mmol/L (3-11); BUN 11 mg/dL (7-18); Bilirubin, Total 0.5 mg/dL (0.2-1.0); CO2 27.5 mmol/L (21.0-32.0); Calcium 8.8 mg/dL (8.5-10.1); Chloride 102 mmol/L (98-107); Estimated GFR 97.78 (mL/min/1.73m2); Glucose 152 mg/dL (74-106); Magnesium 2.1 mg/dL (1.8-2.4); Potassium 4.1 mmol/L (3.5-5.1); Sodium 136 mmol/L (136-145); TSH 1.66 uIU/mL (0.36-3.74); Total Protein 7.1 g/dL (6.4-8.2)
[2024-12-14 09:57] LABS: Hemoglobin A1C 5.5 % (<5.7)
[2024-12-14 12:01] LABS: Iron 98 ug/dL (65-175); Total Iron Binding Capacity 303 ug/dL (250-450); Transferrin Sat 32 % (20-55)
[2024-12-14 12:28] LABS: Ferritin 464 ng/mL (26-388); Vitamin B12 381 pg/mL (193-986)
[2024-12-14 12:30] LABS: Folate > 20.0 ng/mL (8.6-20.0)
[2024-12-14 20:57] LABS: Total Protein 6.5 g/dL (6.3-8.2)
[2024-12-15 11:29] LABS: Albumin 58.6 % (55.8-66.1); Albumin g/dL 3.8 g/dL (3.6-5.2); Alpha 1 g/dL 0.30 g/dL (0.15-0.40); Alpha 2 g/dL 0.60 g/dL (0.50-1.00); Beta g/dL 0.80 g/dL (0.60-1.20); Gamma g/dL 1.00 g/dL (0.60-1.60)
[2024-12-15 16:00] LABS: Albumin, Urine % 11.9 %; Albumin, Urine mg/dL <1 mg/dL; Globulins, Urine % 88.1 %; Globulins, Urine mg/dL <4 mg/dL
[2024-12-27] MEDS: Normal Saline Flush 10 ML SYR IVP (11:03)
[2024-12-27 11:09] LABS: Abs Immature Grans 0.03 10^3/uL (0.0-0.06); HCT 32.2 % (40.0-50.0); HGB 10.6 g/dL (13.5-17.5); Immature Grans % 1.0 %; MCH 31.4 pg (27.0-33.0); MCHC 32.9 % (32.0-36.0); MCV 95 fL (80-95); MPV 9.0 fL (8.0-11.0); Platelet Count 133 10^3/uL (130-400); RBC 3.38 10^6/uL (4.36-5.78); RDW 15.8 % (11.8-14.1); RDW-SD 55.8 fL; WBC 2.96 10^3/uL (4.4-10.8)
[2024-12-27 11:36] LABS: ALT 15 U/L (16-63); AST 26 U/L (15-37); Albumin 3.3 g/dL (3.4-5.0); Alkaline Phosphatase 140 U/L (46-116); Anion Gap 7.5 mmol/L (3-11); BUN 7 mg/dL (7-18); Bilirubin, Total 0.3 mg/dL (0.2-1.0); CO2 27.5 mmol/L (21.0-32.0); Calcium 8.8 mg/dL (8.5-10.1); Chloride 102 mmol/L (98-107); Estimated GFR 101.32 (mL/min/1.73m2); Glucose 156 mg/dL (74-106); Magnesium 1.9 mg/dL (1.8-2.4); Potassium 3.9 mmol/L (3.5-5.1); Sodium 137 mmol/L (136-145); Total Protein 6.8 g/dL (6.4-8.2)
[2024-12-27 14:26] LABS: TSH 1.43 uIU/mL (0.36-3.74)
== END 2025-01-02 23:59 | disposition home or self-care (01) ==
LOC: INF 03:33
PROVIDERS: Physician Assistant; PCP Internal Medicine Medical Oncology; Visit Provider Nurse Practitioner Family
DX: C15.5 Malignant neoplasm of lower third of esophagus (principal); Z79.899 Other long term (current) drug therapy; Z45.2 Encounter for adjustment and management of vascular access device
CPT/HCPCS: 36591; 80053; 84156; 84166; 85652; 86335; 82607; 82728; 82746; 83036; 83540; 83550; 83735; 84165; 84439; 84443; 85025; 86140

== ENCOUNTER 2025-01-25 09:30 | Outpatient (RCR) | payer OTHER, SELFPAY ==
[2025-01-11] MEDS: Normal Saline Flush 10 ML SYR IVP (09:01)
[2025-01-11 09:21] LABS: Abs Immature Grans 0.04 10^3/uL (0.0-0.06); HCT 33.9 % (40.0-50.0); HGB 11.4 g/dL (13.5-17.5); Immature Grans % 0.7 %; MCH 32.7 pg (27.0-33.0); MCHC 33.6 % (32.0-36.0); MCV 97 fL (80-95); MPV 9.0 fL (8.0-11.0); Platelet Count 188 10^3/uL (130-400); RBC 3.49 10^6/uL (4.36-5.78); RDW 16.7 % (11.8-14.1); RDW-SD 59.7 fL; WBC 5.73 10^3/uL (4.4-10.8)
[2025-01-11 09:38] LABS: ALT 15 U/L (16-63); AST 22 U/L (15-37); Albumin 3.4 g/dL (3.4-5.0); Alkaline Phosphatase 106 U/L (46-116); Anion Gap 8.9 mmol/L (3-11); BUN 14 mg/dL (7-18); Bilirubin, Total 0.3 mg/dL (0.2-1.0); CO2 29.1 mmol/L (21.0-32.0); Calcium 8.7 mg/dL (8.5-10.1); Chloride 102 mmol/L (98-107); Glucose 147 mg/dL (74-106); Magnesium 2.0 mg/dL (1.8-2.4); Potassium 3.5 mmol/L (3.5-5.1); Sodium 140 mmol/L (136-145); Total Protein 6.8 g/dL (6.4-8.2)
[2025-01-11 09:45] LABS: TSH 1.44 uIU/mL (0.36-3.74)
[2025-01-25] MEDS: Normal Saline Flush 10 ML SYR IVP (09:53)
[2025-01-25 10:10] LABS: Abs Immature Grans 0.04 10^3/uL (0.0-0.06); HCT 33.9 % (40.0-50.0); HGB 11.6 g/dL (13.5-17.5); Immature Grans % 0.6 %; MCH 32.7 pg (27.0-33.0); MCHC 34.2 % (32.0-36.0); MCV 96 fL (80-95); MPV 8.7 fL (8.0-11.0); Platelet Count 138 10^3/uL (130-400); RBC 3.55 10^6/uL (4.36-5.78); RDW 17.2 % (11.8-14.1); RDW-SD 60.3 fL; WBC 7.00 10^3/uL (4.4-10.8)
[2025-01-25 10:59] LABS: TSH 1.13 uIU/mL (0.36-3.74)
[2025-01-25 11:39] LABS: ALT 21 U/L (16-63); AST 31 U/L (15-37); Albumin 3.6 g/dL (3.4-5.0); Alkaline Phosphatase 94 U/L (46-116); Anion Gap 9.5 mmol/L (3-11); BUN 13 mg/dL (7-18); Bilirubin, Total 0.4 mg/dL (0.2-1.0); CO2 26.5 mmol/L (21.0-32.0); Calcium 8.7 mg/dL (8.5-10.1); Chloride 102 mmol/L (98-107); Glucose 161 mg/dL (74-106); Potassium 3.3 mmol/L (3.5-5.1); Sodium 138 mmol/L (136-145); Total Protein 6.8 g/dL (6.4-8.2)
[2025-01-26 03:40] LABS: Magnesium 2.0 mg/dL (1.8-2.4)
== END 2025-02-01 23:59 | disposition home or self-care (01) ==
LOC: INF 09:30
PROVIDERS: PCP Internal Medicine Medical Oncology; Visit Provider Nurse Practitioner Family
DX: C15.5 Malignant neoplasm of lower third of esophagus (principal); Z79.899 Other long term (current) drug therapy
CPT/HCPCS: 36591; 80053; 83735; 84439; 84443; 85025

== ENCOUNTER 2025-02-21 03:25 | Outpatient (RCR) | payer OTHER, SELFPAY ==
[2025-02-07 13:24] LABS: Abs Immature Grans 0.06 10^3/uL (0.0-0.06); HCT 35.2 % (40.0-50.0); HGB 11.8 g/dL (13.5-17.5); Immature Grans % 1.1 %; MCH 31.6 pg (27.0-33.0); MCHC 33.5 % (32.0-36.0); MCV 94 fL (80-95); MPV 8.5 fL (8.0-11.0); Platelet Count 153 10^3/uL (130-400); RBC 3.74 10^6/uL (4.36-5.78); RDW 17.1 % (11.8-14.1); RDW-SD 58.9 fL; WBC 5.54 10^3/uL (4.4-10.8)
[2025-02-07 13:49] LABS: ALT 19 U/L (16-63); AST 32 U/L (15-37); Albumin 3.8 g/dL (3.4-5.0); Alkaline Phosphatase 96 U/L (46-116); Anion Gap 7.2 mmol/L (3-11); BUN 8 mg/dL (7-18); Bilirubin, Total 0.4 mg/dL (0.2-1.0); CO2 28.8 mmol/L (21.0-32.0); Calcium 8.5 mg/dL (8.5-10.1); Chloride 99 mmol/L (98-107); Glucose 141 mg/dL (74-106); Magnesium 2.0 mg/dL (1.8-2.4); Potassium 4.3 mmol/L (3.5-5.1); Sodium 135 mmol/L (136-145); TSH 0.82 uIU/mL (0.36-3.74); Total Protein 7.0 g/dL (6.4-8.2)
[2025-02-07] MEDS: Normal Saline Flush 10 ML SYR IVP (14:25)
[2025-02-21] MEDS: Normal Saline Flush 10 ML SYR IVP (12:32)
[2025-02-21 12:39] LABS: Abs Immature Grans 0.01 10^3/uL (0.0-0.06); HCT 32.8 % (40.0-50.0); HGB 11.5 g/dL (13.5-17.5); Immature Grans % 0.3 %; MCH 32.1 pg (27.0-33.0); MCHC 35.1 % (32.0-36.0); MCV 92 fL (80-95); MPV 8.7 fL (8.0-11.0); Platelet Count 116 10^3/uL (130-400); RBC 3.58 10^6/uL (4.36-5.78); RDW 16.0 % (11.8-14.1); RDW-SD 53.5 fL; WBC 3.60 10^3/uL (4.4-10.8)
[2025-02-21 13:07] LABS: ALT 15 U/L (16-63); AST 27 U/L (15-37); Albumin 3.4 g/dL (3.4-5.0); Alkaline Phosphatase 118 U/L (46-116); Anion Gap 9.1 mmol/L (3-11); BUN 11 mg/dL (7-18); Bilirubin, Total 0.4 mg/dL (0.2-1.0); CO2 26.9 mmol/L (21.0-32.0); Calcium 8.5 mg/dL (8.5-10.1); Chloride 94 mmol/L (98-107); Glucose 175 mg/dL (74-106); Magnesium 2.1 mg/dL (1.8-2.4); Potassium 4.0 mmol/L (3.5-5.1); Sodium 130 mmol/L (136-145); TSH 1.23 uIU/mL (0.36-3.74); Total Protein 7.2 g/dL (6.4-8.2)
== END 2025-03-04 23:59 | disposition home or self-care (01) ==
LOC: INF 03:25
PROVIDERS: PCP Internal Medicine Medical Oncology; Visit Provider Nurse Practitioner Family
DX: Z45.2 Encounter for adjustment and management of vascular access device (principal); C15.5 Malignant neoplasm of lower third of esophagus; Z79.899 Other long term (current) drug therapy
CPT/HCPCS: 36591; 80053; 80186; 83735; 84439; 84443; 85025

== ENCOUNTER 2025-03-28 03:18 | Outpatient (RCR) | payer OTHER, SELFPAY ==
[2025-03-14] MEDS: Normal Saline Flush 10 ML SYR IVP (12:43)
[2025-03-14 12:50] LABS: Abs Immature Grans 0.34 10^3/uL (0.0-0.06); HCT 32.5 % (40.0-50.0); HGB 10.8 g/dL (13.5-17.5); Immature Grans % 4.3 %; MCH 30.9 pg (27.0-33.0); MCHC 33.2 % (32.0-36.0); MCV 93 fL (80-95); MPV 8.1 fL (8.0-11.0); Platelet Count 241 10^3/uL (130-400); RBC 3.49 10^6/uL (4.36-5.78); RDW 15.9 % (11.8-14.1); RDW-SD 53.6 fL; WBC 7.84 10^3/uL (4.4-10.8)
[2025-03-14 13:32] LABS: ALT 13 U/L (16-63); AST 26 U/L (15-37); Albumin 3.0 g/dL (3.4-5.0); Alkaline Phosphatase 116 U/L (46-116); Anion Gap 6.7 mmol/L (3-11); BUN 13 mg/dL (7-18); Bilirubin, Total 0.3 mg/dL (0.2-1.0); CO2 29.3 mmol/L (21.0-32.0); Calcium 8.2 mg/dL (8.5-10.1); Chloride 100 mmol/L (98-107); Estimated GFR 105.49 (mL/min/1.73m2); Glucose 124 mg/dL (74-106); Magnesium 2.1 mg/dL (1.8-2.4); Potassium 3.8 mmol/L (3.5-5.1); Sodium 136 mmol/L (136-145); TSH 1.03 uIU/mL (0.36-3.74); Total Protein 6.9 g/dL (6.4-8.2)
[2025-03-28 13:24] LABS: Abs Immature Grans 0.31 10^3/uL (0.0-0.06); HCT 32.8 % (40.0-50.0); HGB 10.8 g/dL (13.5-17.5); Immature Grans % 3.1 %; MCH 31.0 pg (27.0-33.0); MCHC 32.9 % (32.0-36.0); MCV 94 fL (80-95); MPV 8.8 fL (8.0-11.0); Platelet Count 199 10^3/uL (130-400); RBC 3.48 10^6/uL (4.36-5.78); RDW 15.8 % (11.8-14.1); RDW-SD 54.2 fL; WBC 10.11 10^3/uL (4.4-10.8)
[2025-03-28 13:58] LABS: Magnesium 1.8 mg/dL (1.6-2.6)
[2025-03-28 14:03] LABS: ALT 14 U/L (10-49); AST 31 U/L (<34); Albumin 3.7 g/dL (3.4-5.0); Alkaline Phosphatase 90 U/L (46-116); Anion Gap 9.1 mmol/L (3-11); BUN 12 mg/dL (9-23); Bilirubin, Total 0.40 mg/dL (0.2-1.2); CO2 28.2 mmol/L (20.0-31.0); Calcium 8.4 mg/dL (8.3-10.6); Chloride 99 mmol/L (98-107); Glucose 170 mg/dL (74-106); Potassium 3.6 mmol/L (3.5-5.1); Sodium 136 mmol/L (136-145); TSH 1.57 uIU/mL (0.55-4.78); Total Protein 6.1 g/dL (5.7-8.2)
[2025-03-28] MEDS: Normal Saline Flush 10 ML SYR IVP (14:08)
== END 2025-04-03 23:59 | disposition home or self-care (01) ==
LOC: INF 03:18
PROVIDERS: PCP Internal Medicine Medical Oncology; Visit Provider Nurse Practitioner Family
DX: Z45.2 Encounter for adjustment and management of vascular access device (principal); Z79.899 Other long term (current) drug therapy; C15.5 Malignant neoplasm of lower third of esophagus
CPT/HCPCS: 36591; 80053; 83735; 84439; 84443; 85025

== ENCOUNTER 2025-04-25 01:12 | Outpatient (RCR) | payer OTHER, SELFPAY ==
[2025-04-12 09:13] LABS: Abs Immature Grans 0.07 10^3/uL (0.0-0.06); HCT 31.6 % (40.0-50.0); HGB 10.5 g/dL (13.5-17.5); Immature Grans % 1.3 %; MCH 32.0 pg (27.0-33.0); MCHC 33.2 % (32.0-36.0); MCV 96 fL (80-95); MPV 9.1 fL (8.0-11.0); Platelet Count 140 10^3/uL (130-400); RBC 3.28 10^6/uL (4.36-5.78); RDW 16.3 % (11.8-14.1); RDW-SD 58.3 fL; WBC 5.21 10^3/uL (4.4-10.8)
[2025-04-12 09:31] LABS: Magnesium 1.9 mg/dL (1.6-2.6)
[2025-04-12 09:33] LABS: ALT 14 U/L (10-49); AST 27 U/L (<34); Albumin 3.7 g/dL (3.2-5.0); Alkaline Phosphatase 78 U/L (46-116); Anion Gap 7.5 mmol/L (3-11); BUN 15 mg/dL (9-23); Bilirubin, Total 0.6 mg/dL (0.2-1.2); CO2 27.5 mmol/L (20.0-31.0); Calcium 8.4 mg/dL (8.3-10.6); Chloride 102 mmol/L (98-107); Glucose 172 mg/dL (74-106); Potassium 3.8 mmol/L (3.5-5.1); Sodium 137 mmol/L (136-145); Total Protein 6.2 g/dL (5.7-8.2)
[2025-04-12 09:36] LABS: TSH 0.98 uIU/mL (0.55-4.78)
[2025-04-12] MEDS: Normal Saline Flush 10 ML SYR IVP (12:30)
[2025-04-12 19:36] LABS: CEA 2.1 ng/mL (See Note)
[2025-04-25 13:04] LABS: Abs Immature Grans 0.14 10^3/uL (0.0-0.06); HCT 35.1 % (40.0-50.0); HGB 11.5 g/dL (13.5-17.5); Immature Grans % 2.0 %; MCH 30.9 pg (27.0-33.0); MCHC 32.8 % (32.0-36.0); MCV 94 fL (80-95); MPV 9.2 fL (8.0-11.0); Platelet Count 147 10^3/uL (130-400); RBC 3.72 10^6/uL (4.36-5.78); RDW 16.7 % (11.8-14.1); RDW-SD 57.6 fL; WBC 7.04 10^3/uL (4.4-10.8)
[2025-04-25 13:29] LABS: Magnesium 2.1 mg/dL (1.6-2.6); TSH 1.29 uIU/mL (0.55-4.78)
[2025-04-25 13:31] LABS: ALT 14 U/L (10-49); AST 30 U/L (<34); Albumin 4.2 g/dL (3.2-5.0); Alkaline Phosphatase 74 U/L (46-116); Anion Gap 8.5 mmol/L (3-11); BUN 15 mg/dL (9-23); Bilirubin, Total 0.5 mg/dL (0.2-1.2); CO2 29.5 mmol/L (20.0-31.0); Calcium 9.1 mg/dL (8.3-10.6); Chloride 101 mmol/L (98-107); Glucose 129 mg/dL (74-106); Potassium 4.1 mmol/L (3.5-5.1); Sodium 139 mmol/L (136-145); Total Protein 6.9 g/dL (5.7-8.2)
[2025-04-25] MEDS: Normal Saline Flush 10 ML SYR IVP (13:45)
[2025-04-26 10:21] LABS: CEA 2.7 ng/mL (See Note)
== END 2025-05-04 23:59 | disposition home or self-care (01) ==
LOC: INF 01:12
PROVIDERS: PCP Internal Medicine Medical Oncology; Visit Provider Nurse Practitioner Family
DX: C15.5 Malignant neoplasm of lower third of esophagus (principal); Z79.899 Other long term (current) drug therapy; Z45.2 Encounter for adjustment and management of vascular access device
CPT/HCPCS: 36591; 80053; 82378; 83735; 84439; 84443; 85025